=== PATIENT | female | born 1990 | race Two or more races ===

== ENCOUNTER 2023-08-07 10:45 | Outpatient (CLI) | payer OTHER | END 2023-08-07 10:48 | disposition home or self-care (01) | LOC: PRENATAL 10:45 | PROVIDERS: ATTEND Obstetrics & Gynecology Maternal & Fetal Medicine | DX: O35.3XX0 Maternal care for (suspected) damage to fetus from viral disease in mother, not applicable or unspecified (principal); O26.849 Uterine size-date discrepancy, unspecified trimester; O36.8199 Decreased fetal movements, unspecified trimester, other fetus; O26.879 Cervical shortening, unspecified trimester; O34.219 Maternal care for unspecified type scar from previous cesarean delivery; O09.529 Supervision of elderly multigravida, unspecified trimester; Z3A.31 31 weeks gestation of pregnancy ==

== ENCOUNTER 2023-09-02 13:21 | Outpatient (CLI) | payer OTHER | END 2023-09-02 13:22 | disposition home or self-care (01) | LOC: PRENATAL 13:21 | PROVIDERS: ATTEND Obstetrics & Gynecology Maternal & Fetal Medicine | DX: O26.849 Uterine size-date discrepancy, unspecified trimester (principal); O36.8199 Decreased fetal movements, unspecified trimester, other fetus; O26.879 Cervical shortening, unspecified trimester; O34.219 Maternal care for unspecified type scar from previous cesarean delivery; O09.529 Supervision of elderly multigravida, unspecified trimester; Z3A.35 35 weeks gestation of pregnancy ==

== ENCOUNTER 2023-09-23 11:45 | Inpatient (IN) | payer OTHER ==
[~2023-09-23] VITALS: Ht 167.6 cm; Wt 68.0 kg
[2023-09-24] MEDS ORDERED: CHLORHEXIDINE GLUCONATE 120 ML BOTTLE TOP ONE ×2 (03:32→09:45)
[2023-09-24] MEDS ORDERED: ERYTHROMYCIN BASE 1 GM TUBE OP ONE (03:32)
[2023-09-24] MEDS ORDERED: OXYTOCIN 20 UNITS/1000ML RL PIGGYBAG IV ONE (03:32)
[2023-09-24] MEDS ORDERED: AMPICILLIN SODIUM 2,000 MG VIAL ONE (03:33)
[2023-09-24 04:01] LABS: HEMATOCRIT 32.4 % (36.0-45.00); MEAN CELL VOLUME 90.1 fL (80.00-100.00); MEAN CORPUSCULAR HEMOGLOBIN 30.7 pg (27.00-32.0); MEAN CORPUSCULAR HGB CONC 34.1 g/dl (32.0-36.0); PLATELET COUNT 245 K/uL (150-450); RED BLOOD COUNT 3.59 M/uL (4.00-6.00); RED CELL DISTRIBUTION WIDTH 13.1 % (11.5-14.5)
[2023-09-24 04:22] LABS: INR 0.94; PARTIAL THROMBOPLASTIN TIME 29.2 SECONDS (22.0-34.0); PROTHROMBIN TIME 9.9 SECONDS (9.0-11.5)
[2023-09-24 04:36] LABS: ALBUMIN 2.8 gm/dL (3.4-5.0); BILIRUBIN TOTAL 0.27 mg/dL (0.3-1.2); CALCIUM 8.9 mg/dL (8.5-10.1); CREATININE SERUM 0.62 mg/dL (0.55-1.02); GFR 109.54; GLOBULINA 3.2 G/DL (2.4-3.5); POTASSIUM 3.31 mEq/L (3.5-5.1)
[2023-09-24] MEDS ORDERED: ZOLOFT20 MG/1 ML PO (04:36)
[2023-09-24] MEDS ORDERED: PRENATABS RX T1 EACH PO (04:36)
[2023-09-24] MEDS ORDERED: BUSPIRONE HCL10 MG PO (04:37)
[2023-09-24] MEDS ORDERED: FOLIC ACID0.8 M1 PO (04:37)
[2023-09-24] MEDS ORDERED: ACETAMINOPHEN 500 MG GEL..CAP PO PRN (05:00)
[2023-09-24] MEDS ORDERED: IBUprofen 400 MG TABLET PO PRN (05:00)
[2023-09-24] MEDS ORDERED: BENZOCAINE/MENTHOL 90 ML BOTTLE TOP PRN (05:00)
[2023-09-24] MEDS ORDERED: LIDOCAINE HCL 1% 200MG/20ML VIAL IJ SCH (05:00)
[2023-09-24] MEDS ORDERED: CHLORHEXIDINE GLUCONATE 120 ML BOTTLE TOP SCH (05:00)
[2023-09-24] MEDS ORDERED: ERYTHROMYCIN BASE 1 GM TUBE OP SCH (05:00)
[2023-09-24] MEDS ORDERED: METHYLERGONOVINE MALEATE 0.2 MG/ML AMPUL IM SCH ×2 (05:30→10:00)
[2023-09-24] MEDS ORDERED: AMPICILLIN SODIUM 2,000 MG VIAL IV ONE (05:30)
[2023-09-24] MEDS ORDERED: RINGERS SOLUTION,LACTATED 1,000 ML IV ONE (05:30)
[2023-09-24] MEDS ORDERED: OXYTOCIN 20 UNITS/1000ML RL PIGGYBAG IV SCH (05:30)
[2023-09-24] MEDS ORDERED: METHYLERGONOVINE MALEATE 0.2 MG/ML AMPUL ONE (05:31)
[2023-09-24] MEDS ORDERED: CARBOPROST TROMETHAMINE 250 MCG/ML AMPUL IM ONE (06:45)
[2023-09-24] MEDS ORDERED: CARBOPROST TROMETHAMINE 250 MCG/ML AMPUL IM STA (06:48)
[2023-09-24] MEDS ORDERED: OXYTOCIN 20 UNITS/500ML RL PIGGYBAG IV ONE (07:00)
[2023-09-24] MEDS ORDERED: MISOPROSTOL 100 MCG TABLET ONE (07:09)
[2023-09-24] MEDS ORDERED: MISOPROSTOL 100 MCG TABLET PO STA (07:13)
[2023-09-24] MEDS ORDERED: CEFAZOLIN SODIUM 1,000 MG VIAL ONE (07:28)
[2023-09-24] MEDS ORDERED: CEFAZOLIN SODIUM 1,000 MG VIAL IV STA (07:31)
[2023-09-24 07:42] LABS: HEMATOCRIT 28.3 % (36.0-45.00); HEMOGLOBIN 9.5 g/dL (12.0-15.00); MEAN CELL VOLUME 89.8 fL (80.00-100.00); MEAN CORPUSCULAR HEMOGLOBIN 30.3 pg (27.00-32.0); MEAN CORPUSCULAR HGB CONC 33.7 g/dl (32.0-36.0); PLATELET COUNT 199 K/uL (150-450); RED BLOOD COUNT 3.15 M/uL (4.00-6.00)
[2023-09-24] MEDS ORDERED: DOCUSATE SODIUM 100MG CAP PO SCH (09:00)
[2023-09-24] MEDS ORDERED: SUGAMMADEX SODIUM 200 MG/2 ML VIAL IV ONE ×2 (09:05→09:45)
[2023-09-24] MEDS ORDERED: OXYTOCIN 1,000 ML IV SCH (09:30)
[2023-09-24] MEDS ORDERED: POVIDONE-IODINE 118 ML BOTT TOP ONE (09:45)
[2023-09-24] MEDS ORDERED: OXYTOCIN 10 UNITS/ML VIAL ONE ×2 (09:57→11:10)
[2023-09-24] MEDS ORDERED: ACETAMINOPHEN WITH CODEINE 1 UDTAB TABLET PO PRN (10:00)
[2023-09-24 12:07] LABS: MEAN CELL VOLUME 89.5 fL (80.00-100.00); MEAN CORPUSCULAR HGB CONC 33.9 g/dl (32.0-36.0); PLATELET COUNT 172 K/uL (150-450); RED BLOOD COUNT 2.51 M/uL (4.00-6.00); RED CELL DISTRIBUTION WIDTH 12.7 % (11.5-14.5)
[2023-09-24 12:16] LABS: MEAN CORPUSCULAR HEMOGLOBIN 30.2 pg (27.00-32.0)
[2023-09-24 12:17] LABS: HEMATOCRIT 22.5 % (36.0-45.00); HEMOGLOBIN 7.6 g/dL (12.0-15.00)
[2023-09-24] MEDS ORDERED: SOD FERRIC GLUC COMPLX/SUCROSE 62.5 MG/5 ML AMPUL IV SCH (12:22)
[2023-09-24] MEDS ORDERED: SIMETHICONE 125 MG CAPSULE PO SCH (13:00)
[2023-09-24 20:42] LABS: MEAN CELL VOLUME 90.8 fL (80.00-100.00); MEAN CORPUSCULAR HGB CONC 35.3 g/dl (32.0-36.0); PLATELET COUNT 136 K/uL (150-450); RED BLOOD COUNT 1.87 M/uL (4.00-6.00); RED CELL DISTRIBUTION WIDTH 12.3 % (11.5-14.5)
[2023-09-25 14:33] LABS: MEAN CELL VOLUME 87.9 fL (80.00-100.00); MEAN CORPUSCULAR HGB CONC 34.7 g/dl (32.0-36.0); PLATELET COUNT 164 K/uL (150-450); RED BLOOD COUNT 2.62 M/uL (4.00-6.00); RED CELL DISTRIBUTION WIDTH 14.8 % (11.5-14.5)
[2023-09-25 14:35] LABS: MEAN CORPUSCULAR HEMOGLOBIN 30.5 pg (27.00-32.0)
[2023-09-26] MEDS ORDERED: MAXFE CAPLET1 EAC1 PO (09:16)
[2023-09-26] MEDS ORDERED: NAPR500T14 PO (09:16)
== END 2023-09-26 15:14 | disposition home or self-care (01) | DRG 807 ==
LOC: LDR 09-24 03:25 → OB/GYN 09-24 03:25
PROVIDERS: ADMIT Obstetrics & Gynecology; ATTEND Obstetrics & Gynecology
PROC: 0KQM0ZZ Repair Perineum Muscle, Open Approach (ICD-10-PCS; 2023-09-24)
PROC: 0UQG7ZZ Repair Vagina, Via Natural or Artificial Opening (ICD-10-PCS; 2023-09-24)
PROC: 4A1HXCZ Monitoring of Products of Conception, Cardiac Rate, External Approach (ICD-10-PCS; 2023-09-24)
PROC: 30233N1 Transfusion of Nonautologous Red Blood Cells into Peripheral Vein, Percutaneous Approach (ICD-10-PCS; 2023-09-24)
PROC: 10E0XZZ Delivery of Products of Conception, External Approach (ICD-10-PCS; principal; 2023-09-24 10:15)
DX: O70.1 Second degree perineal laceration during delivery (principal); O67.8 Other intrapartum hemorrhage; Z37.0 Single live birth; O34.211 Maternal care for low transverse scar from previous cesarean delivery; Z3A.38 38 weeks gestation of pregnancy; Z20.822 Contact with and (suspected) exposure to COVID-19